=== PATIENT | male | born 1965 | race American Indian/Alaskan Native ===

== ENCOUNTER 2017-03-15 09:52 | Emergency (ER) | payer OTHER ==
[2017-03-15 10:36] VITALS: BP 131/74
--- NOTE | 2017-03-15 11:03 | XRay Report ---
RIGHT HAND, 3 views: History: Right thumb injury, pain and swelling. The bony architecture is intact. No acute fracture is detected. Apparent chronic bony injury to the proximal phalanx of the fourth digit is noted. Bony alignment is normal. No soft tissue abnormalities are seen. The joint spaces appear preserved. IMPRESSION: No acute injury is appreciated.
--- NOTE | 2017-03-15 11:37 | Emergency Department Report ---
Upper Extremity - HPI Chief Complaint: Extremity Injury, Upper Stated Complaint: INFECTION R THUMB Time Seen by Provider: 03/15/17 11:29 Upper Extremity: Right Thumb Occurred When: >5 Days (7 days) Mechanism: Crush Severity: moderate Symptoms: Yes Pain with Movement, Yes Swelling, Yes Bruising/Ecchymosis Other History: 51-year-old male past medical history hypertension presents with pus and drainage from right thumb finger pad extending down through the right thumb. Patient denies fever or chills. 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 Patient unaware of tetanus status. Is able to range thumb but it is severely swollen. ED Review of Systems ROS: Stated complaint: INFECTION R THUMB Other details as noted in HPI Constitutional: denies: chills, fever Eyes: denies: eye pain, eye discharge, vision change ENT: denies: ear pain, throat pain Respiratory: denies: cough, shortness of breath, wheezing Cardiovascular: denies: chest pain, palpitations Endocrine: no symptoms reported Gastrointestinal: denies: abdominal pain, nausea, diarrhea Genitourinary: denies: urgency, dysuria Musculoskeletal: as per HPI (swollen right thumb). denies: back pain, joint swelling, arthralgia Skin: denies: rash, lesions Neurological: denies: headache, weakness, paresthesias Psychiatric: denies: anxiety, depression Hematological/Lymphatic: denies: easy bleeding, easy bruising ED Past Medical Hx - Past Medical History Previous Medical History?: Yes Hx Hypertension: Yes (controlled with diet and exercise) Additional medical history: high cholesterol - Surgical History Past Surgical History?: Yes Additional Surgical History: 2 right knee surgeries. - Social History Smoking Status: Never Smoker Substance Use Type: None - Medications Home Medications: Home Medications Medication Instructions Recorded Confirmed Last Taken Type Atorvastatin [Lipitor] 40 mg PO QHS 04/24/13 04/24/13 04/23/13 History Cyclobenzaprine HCl [Flexeril 5mg] 5 mg PO BID PRN #15 tablet 11/01/13 Unknown Rx Meloxicam [Mobic] 7.5 mg PO QDAY PRN #20 tablet 11/01/13 Unknown Rx Cephalexin [Keflex] 500 mg PO Q12HR #14 cap 03/15/17 Unknown Rx Ibuprofen [Motrin] 800 mg PO Q8HR PRN #30 tablet 03/15/17 Unknown Rx Sulfamethoxazole/Trimethoprim 1 each PO BID #14 tablet 03/15/17 Unknown Rx [Bactrim DS TAB] Upper Extremity Exam - Exam General: Vital signs noted. No distress. Alert and acting appropriately. Head and Torso: No HEENT Abnormality, No Neck Tenderness, No Chest/Lungs Abnormality, No Abdominal Tenderness, No Back Tenderness Shoulder Exam: Yes Normal Range of Motion in Shoulder, No Shoulder Tenderness, No Clavicle Tenderness, No Shoulder Deformity, No AC Joint Tenderness Arm Exam: No Arm/Humerus Tenderness, No Arm Deformity Elbow: No Elbow Tenderness, No Normal Range of Motion in Elbow, No Elbow Deformity Forearm: No Forearm Tenderness, No Forearm Deformity, No Pain with Pronation, No Pain with Supination Wrist: Yes Normal ROM in Wrist, No Wrist Tenderness, No Wrist Deformity, No Snuffbox Tenderness, No Pain with Axial Thumb Compression Hand: Yes Digit Tenderness (right thumb erythema and fluctuance and tenderness on the palmar side between the DIP and MCP), No Hand Tenderness, No Hand Deformity, No Normal ROM in Digit(s) (Limited thumb flexion), No Digit(s) Deformity, No Tendon Dysfunction CMS Exam: Yes Normal Distal Pulses (less than 1 second), Yes Normal Capillary Refill, Yes Normal Distal Sensation, No Broken Skin Hand L/R Front: 1 - Pain swelling, erythema and fluctuance here ED Course Vital Signs 03/15/17 10:25 Temperature 98.5 F Pulse Rate 63 Respiratory 18 Rate Blood Pressure 131/74 O2 Sat by Pulse 97 Oximetry ED Medical Decision Making - Lab Data Result diagrams: 03/15/17 12:23 03/15/17 12:23 - Medical Decision Making A/P: Right thumb felon 1-Bactrim and Keflex 2- discussed with Dr. Merritt 3-I advised patient that he would have to be transferred to a facility with orthopedic hand surgeon to have felon properly incised and drain. Patient elected to leave the hospital before I could accomplish this. I advised the patient's return as soon as possible or to go to a hospital that has hand or orthopedic surgery customer solutions specialist in order to have procedure done as infection likely spread and worsened without drainage of fluctuance inside finger. Patient understood my instructions clearly and signed out AGAINST MEDICAL ADVICE. I advised the patient that he is at risk of permanent disability and/or amputation of finger if infection progresses to the bone and that he is also at risk of sepsis and . Patient understood this conversation and stated he would follow up SHEYLA. 4- Motrin when necessary Critical care attestation.: If time is entered above; I have spent that time in minutes in the direct care of this critically ill patient, excluding procedure time. ED Disposition Clinical Impression: Felon of finger of right hand, Left against medical advice Disposition: LEFT AGAINST MED ADVICE Is pt being admited?: No Does the pt Need Aspirin: No Condition: Stable Instructions: Cellulitis (ED), Abscess (ED) Additional Instructions: I advised patient to seek medical attention as soon as possible and advised him that he needs to see an orthopedic physician or hand surgeon for incision of his finger infection. Patient understood my instructions. Prescriptions: Cephalexin [Keflex] 500 mg PO Q12HR #14 cap Ibuprofen [Motrin] 800 mg PO Q8HR PRN #30 tablet PRN Reason: Pain Sulfamethoxazole/Trimethoprim [Bactrim DS TAB] 1 each PO BID #14 tablet Referrals: [facility] [Provider Group] - 3-5 Days CAMMY CRUZ MD [Staff Physician] - 3-5 Days Forms: AMA Form Time of Disposition: 13:51
[2017-03-15] MEDS ORDERED: MOTRIN PO ONE (11:50)
[2017-03-15] MEDS ORDERED: BOOSTRIX IM ONE (11:51)
[2017-03-15 12:59] LABS: Basophils % (Auto) 0.9 % (0.0-1.8); Eosinophils % (Auto) 3.1 % (0.0-4.3); Hematocrit 38.2 % (35.5-45.6); Hemoglobin 12.7 gm/dl (11.8-15.2); Mean Corpuscular HGB Conc 33 % (32-34); Mean Corpuscular Hemoglobin 30 pg (28-32); Mean Corpuscular Volume 89 fl (84-94); Platelet Count 308 K/mm3 (140-440); Red Blood Count 4.28 M/mm3 (3.65-5.03); Red Cell Distribution Width 13.5 % (13.2-15.2); White Blood Count 6.9 K/mm3 (4.5-11.0)
[2017-03-15 13:16] LABS: Anion Gap 18 mmol/L; BUN/Creatinine Ratio 16; Blood Urea Nitrogen 8 mg/dL (9-20); Calcium 8.7 mg/dL (8.4-10.2); Carbon Dioxide 24 mmol/L (22-30); Chloride 101.2 mmol/L (98-107); Glucose 86 mg/dL (75-100); Potassium 3.8 mmol/L (3.6-5.0); Sodium 139 mmol/L (137-145)
[2017-03-15] MEDS ORDERED: BACTRIM DS PO ONE (13:30)
[2017-03-15 13:31] LABS: Erythrocyte Sedimentation Rate 14 mm/Hr (0-20)
[2017-03-15] MEDS ORDERED: KEFLEX PO ONE (13:31)
== END 2017-03-15 13:45 | disposition left against medical advice (07) ==
LOC: ED 09:52
DX: L03.011 Cellulitis of right finger (principal); I10 Essential (primary) hypertension; E78.00 Pure hypercholesterolemia, unspecified
CPT/HCPCS: 36415; 80048; 82140; 85025; 85652; 86140; 87040; 90471; 90715

== ENCOUNTER 2019-05-27 06:55 | Emergency (ER) | payer OTHER ==
[2019-05-27 07:04] VITALS: BP 152/97
--- NOTE | 2019-05-27 08:55 | Emergency Department Report ---
ED ENT HPI - General Chief complaint: Abdominal Pain Stated complaint: ALLERGIC REACTION,CRAMPS IN STOMACH Time Seen by Provider: 05/27/19 08:40 Source: patient Mode of arrival: Ambulatory Limitations: No Limitations - History of Present Illness Initial comments: patient is a 54-year-old male presents emergency room with complaints of a dental abscess to the left upper jaw that began a week ago. Patient states that he went to the dentist 8 days ago and had a couple root canals performed. He states that he has one root canal left that needs to be completed but was not able to complete it that day secondary to a becoming uncomfortable. States that the dentist placed him on penicillin, Motrin, hydrocodone. He states during the last couple days he has now noticed left-sided facial swelling which he states he did not have before. Patient states that he went to [facility] urgent care last night and was given a ceftriaxone injection but they did not change any of his other medications. This morning when he woke up he took a penicillin on empty stomach and then began having nausea, feeling overheated, having stomach cramps. He states he is not having no symptoms currently. he states that the facial swelling has not been improving. Past medical history of hypertension. He denies any known allergies. - Related Data Home Medications Medication Instructions Recorded Confirmed Last Taken Atorvastatin [Lipitor] 40 mg PO QHS 04/24/13 04/24/13 04/23/13 Previous Rx's Medication Instructions Recorded Last Taken Type Cyclobenzaprine HCl [Flexeril 5mg] 5 mg PO BID PRN #15 tablet 11/01/13 Unknown Rx Meloxicam [Mobic] 7.5 mg PO QDAY PRN #20 tablet 11/01/13 Unknown Rx Ibuprofen [Motrin] 800 mg PO Q8HR PRN #30 tablet 03/15/17 Unknown Rx Sulfamethoxazole/Trimethoprim 1 each PO BID #14 tablet 03/15/17 Unknown Rx [Bactrim DS TAB] cephALEXin [Keflex] 500 mg PO Q12HR #14 cap 03/15/17 Unknown Rx Clindamycin [Clindamycin CAP] 450 mg PO TID 7 Days #63 capsule 05/27/19 Unknown Rx Allergies Allergy/AdvReac Type Severity Reaction Status Date / Time No Known Allergies Allergy Unverified 04/24/13 09:36 ED Dental HPI - General Chief complaint: Abdominal Pain Stated complaint: ALLERGIC REACTION,CRAMPS IN STOMACH Time Seen by Provider: 05/27/19 08:40 Source: patient Mode of arrival: Ambulatory Limitations: No Limitations - Related Data Home Medications Medication Instructions Recorded Confirmed Last Taken Atorvastatin [Lipitor] 40 mg PO QHS 04/24/13 04/24/13 04/23/13 Previous Rx's Medication Instructions Recorded Last Taken Type Cyclobenzaprine HCl [Flexeril 5mg] 5 mg PO BID PRN #15 tablet 11/01/13 Unknown Rx Meloxicam [Mobic] 7.5 mg PO QDAY PRN #20 tablet 11/01/13 Unknown Rx Ibuprofen [Motrin] 800 mg PO Q8HR PRN #30 tablet 03/15/17 Unknown Rx Sulfamethoxazole/Trimethoprim 1 each PO BID #14 tablet 03/15/17 Unknown Rx [Bactrim DS TAB] cephALEXin [Keflex] 500 mg PO Q12HR #14 cap 03/15/17 Unknown Rx Clindamycin [Clindamycin CAP] 450 mg PO TID 7 Days #63 capsule 05/27/19 Unknown Rx Allergies Allergy/AdvReac Type Severity Reaction Status Date / Time No Known Allergies Allergy Unverified 04/24/13 09:36 ED Review of Systems ROS: Stated complaint: ALLERGIC REACTION,CRAMPS IN STOMACH Other details as noted in HPI Comment: All other systems reviewed and negative ED Past Medical Hx - Past Medical History Previous Medical History?: Yes Hx Hypertension: Yes (controlled with diet and exercise) Additional medical history: high cholesterol - Surgical History Past Surgical History?: Yes Additional Surgical History: 2 right knee surgeries. - Social History Smoking Status: Former Smoker Substance Use Type: Marijuana - Medications Home Medications: Home Medications Medication Instructions Recorded Confirmed Last Taken Type Atorvastatin [Lipitor] 40 mg PO QHS 04/24/13 04/24/13 04/23/13 History Cyclobenzaprine HCl [Flexeril 5mg] 5 mg PO BID PRN #15 tablet 11/01/13 Unknown Rx Meloxicam [Mobic] 7.5 mg PO QDAY PRN #20 tablet 11/01/13 Unknown Rx Ibuprofen [Motrin] 800 mg PO Q8HR PRN #30 tablet 03/15/17 Unknown Rx Sulfamethoxazole/Trimethoprim 1 each PO BID #14 tablet 03/15/17 Unknown Rx [Bactrim DS TAB] cephALEXin [Keflex] 500 mg PO Q12HR #14 cap 03/15/17 Unknown Rx Clindamycin [Clindamycin CAP] 450 mg PO TID 7 Days #63 capsule 05/27/19 Unknown Rx ED Physical Exam - General Limitations: No Limitations General appearance: alert, in no apparent distress - Head Head exam: Present: atraumatic, normocephalic - Eye Eye exam: Present: normal appearance - ENT ENT exam: Present: normal orophraynx, mucous membranes moist, other (a puddy is present in the left upper back tooth where the root canal has not yet been completed, there is associated edema and TTP present in the left upper gumlin e/cheek, there is left sided facial edema, uvula is mildine, no uvular edema, no uvular deviation) - Respiratory Respiratory exam: Present: normal lung sounds bilaterally. Absent: respiratory distress, wheezes, rales, rhonchi, stridor, chest wall tenderness, accessory muscle use, decreased breath sounds, prolonged expiratory - Cardiovascular Cardiovascular Exam: Present: regular rate, normal rhythm, normal heart sounds. Absent: systolic murmur, diastolic murmur, rubs, gallop - Neurological Exam Neurological exam: Present: alert, oriented X3 - Psychiatric Psychiatric exam: Present: normal affect, normal mood - Skin Skin exam: Present: warm, dry, intact ED Course Vital Signs 05/27/19 07:00 Temperature 98.9 F Pulse Rate 99 H Respiratory 18 Rate Blood Pressure 152/97 O2 Sat by Pulse 99 Oximetry ED Medical Decision Making - Medical Decision Making patient is a 54-year-old male presents emergency room with complaints of a dental abscess to the left upper jaw that began a week ago. Patient states that he went to the dentist 8 days ago and had a couple root canals performed. He states that he has one root canal left that needs to be completed but was not able to complete it that day secondary to a becoming uncomfortable. States that the dentist placed him on penicillin, Motrin, hydrocodone. He states during the last couple days he has now noticed left-sided facial swelling which he states he did not have before. Patient states that he went to [facility] urgent care last night and was given a ceftriaxone injection but they did not change any of his other medications. This morning when he woke up he took a penicillin on empty stomach and then began having nausea, feeling overheated, having stomach cramps. He states he is not having no symptoms currently. he states that the facial swelling has not been improving. Past medical history of hypertension. He denies any known allergies. VSS. on exam: a puddy is present in the left upper back tooth where the root canal has not yet been completed, there is associated edema and TTP present in the left upper gumline/cheek, there is left sided facial edema, uvula is mildine, no uvular edema, no uvular deviation. Examination consistent with dental abscess and facial cellulitis. Given that patient has already been on penicillin and continues to have abscess will change patient's medication to clindamycin. advised pt Please take medication as prescribed with food. stop taking penicillin and begin taking clindamycin. May continue to take the pain medication prescribed by your dentist as needed for pain but please also take with food. follow up with your dentist in the next 3- 5 days. Return to the emergency room for any new or worsening symptoms. Critical care attestation.: If time is entered above; I have spent that time in minutes in the direct care of this critically ill patient, excluding procedure time. ED Disposition Clinical Impression: Dental abscess, Facial cellulitis Disposition: TO HOME OR SELFCARE Is pt being admited?: No Does the pt Need Aspirin: No Condition: Stable Instructions: Dental Abscess (ED) Additional Instructions: Please take medication as prescribed with food. stop taking penicillin and begin taking clindamycin. May continue to take the pain medication prescribed by your dentist as needed for pain but please also take with food. follow up with your dentist in the next 3-5 days. Return to the emergency room for any new or worsening symptoms. Prescriptions: Clindamycin [Clindamycin CAP] 450 mg PO TID 7 Days #63 capsule Referrals: your, dentist [Other] - 3-5 Days Time of Disposition: 08:55 Print Language: FRENCH
== END 2019-05-27 09:14 | disposition home or self-care (01) ==
LOC: ED 06:55
DX: K04.7 Periapical abscess without sinus (principal); L03.211 Cellulitis of face; I10 Essential (primary) hypertension; F12.10 Cannabis abuse, uncomplicated; E78.00 Pure hypercholesterolemia, unspecified; Z87.891 Personal history of nicotine dependence; Z79.899 Other long term (current) drug therapy